=== PATIENT | female | born 1980 | race Caucasian/White ===

== ENCOUNTER 2018-02-07 12:59 | Emergency (ER) | payer MEDICAID ==
--- NOTE | 2018-02-07 13:14 | ER Report ---
History and Physical Time Seen By MD: 13:15 HPI/ROS CHIEF COMPLAINT: Cough, body aches HISTORY OF PRESENT ILLNESS: 37-year-old female patient presents to emergency room with complaint of cough and bodyaches. Patient states she started getting sick the day after Thanksgiving. She states her daughter started getting sick 2 days before that. She states that she has not had any fevers or chills. She states that she has not had much of an appetite. Patient states she is not taking any medication for this. She is a smoker as in the process of quitting. Patient denies any nausea, vomiting or diarrhea. REVIEW OF SYSTEMS: Respiratory: As noted above Cardiovascular: No chest pain, no palpitations. Gastrointestinal: No vomiting, no abdominal pain. Musculoskeletal: No back pain. Allergies: Coded Allergies: Penicillins (Verified Allergy, Unknown, 02/07/18) amoxicillin (Verified Allergy, Unknown, 02/07/18) ketorolac (Verified Allergy, Unknown, 02/07/18) tramadol (Verified Allergy, Unknown, 02/07/18) Home Meds Active Scripts Albuterol Sulfate (VENTOLIN HFA) 18 Gm Inh, 2 PUFF INH Q4-6H PRN for SHORTNESS OF BREATH, #1 INH Prov:MELLY QUACH [facility] 02/07/18 Hydrocodone Bit/Acetaminophen (HYDROCODON-ACETAMINOPHEN 5-325) 1 Each Tablet, 1 EACH PO Q4-6H PRN for PAIN, #8 TAB Prov:MELLY QUACH [facility] 02/07/18 Azithromycin 250 Mg Tab (AZITHROMYCIN 250 MG TAB) 250 Mg Tablet, 1 TAB PO QDAY, #6 TAB Take 2 tabs today and then 1 tab a day until gone. Prov:MELLY QUACH [facility] 02/07/18 Past Medical/Surgical History Patient has a past medical history of migraines, pneumonia, COPD, kidney stones, hypothyroidism, depression, PTSD, phobias. Patient has surgical history of multiple ear surgeries, club foot. Reviewed Nurses Notes: Yes Constitutional Vital Sign - Last 24 Hours 02/07/18 02/07/18 02/07/18 02/07/18 13:16 13:43 13:43 13:51 Temp 98.1 Pulse 113 112 120 Resp 20 18 18 B/P (MAP) 115/87 Pulse Ox 93 94 O2 Delivery Room Air Room Air Physical Exam General Appearance: The patient is alert, has no immediate need for airway protection and no current signs of toxicity. Respiratory: Chest is non tender, lungs are clear to auscultation. Cardiac: regular rate and rhythm Gastrointestinal: Abdomen is soft and non tender, no masses, bowel sounds normal. Musculoskeletal: Neck: Neck is supple and non tender. Extremities have full range of motion and are non tender. Skin: No rashes or lesions. DIFFERENTIAL DIAGNOSIS: After history and physical exam differential diagnosis was considered for shortness of breath including but not limited to pulmonary infectious process, COPD, asthma, pulmonary embolus and congestive heart failure. Medical Decision Making EKG/Imaging Imaging Exam type: CHEST PA AND LAT History: Cough, smoker Comparison: None. Findings: Both lungs are well-expanded and clear. There is no focal infiltrate, pleural effusion or pneumothorax. Heart size appears upper limits of normal. The osseous structures are unremarkable. IMPRESSION: 1. No acute cardiopulmonary disease. Report Dictated By: Sudarshan Singh MD at 02/07/2018 2:32 PM Report E-Signed By: Sudarshan Singh MD at 02/07/2018 2:33 PM ED Course/Re-evaluation ED Course Patient was admitted to exam room, history and physical were obtained. Differential diagnoses were considered. On examination lungs are coarse throughout, abdomen soft nontender. Heart rate is regular. A chest x-ray was done. Does appear that she has a developing pneumonia in the right lower lobe. I discussed findings with the patient. We will go ahead and treat her with azithromycin, albuterol inhaler, we did give her a breathing treatment here in the emergency room she states that did seem to help, as well as a limited amount of pain medication she's having pleurisy with her pneumonia. I discussed this with the patient. I would like her to follow-up with her primary care provider in the next week. Patient verbalized understanding and agreement with plan. Decision to Disposition Date: Feb 07, 2018 Decision to Disposition Time: 14:46 Depart Departure Latest Vital Signs Vital Signs Date Time Temp Pulse Resp B/P (MAP) Pulse Ox O2 Delivery O2 Flow Rate FiO2 02/07/18 13:51 120 18 02/07/18 13:43 94 Room Air 02/07/18 13:16 98.1 115/87 Impression: Primary Impression: Pneumonia Condition: Improved Disposition: HOME OR SELF-CARE New Scripts Albuterol Sulfate (VENTOLIN HFA) 18 Gm Inh 2 PUFF INH Q4-6H PRN for SHORTNESS OF BREATH, #1 INH Prov: MELLY QUACH [facility] 02/07/18 Hydrocodone Bit/Acetaminophen (HYDROCODON-ACETAMINOPHEN 5-325) 1 Each Tablet 1 EACH PO Q4-6H PRN for PAIN, #8 TAB Prov: MELLY QUACH [employer]CHNIC[employer] 02/07/18 Azithromycin 250 Mg Tab (AZITHROMYCIN 250 MG TAB) 250 Mg Tablet 1 TAB PO QDAY, #6 TAB Take 2 tabs today and then 1 tab a day until gone. Prov: MELLY QUACH [facility] 02/07/18 Patient Instructions: Community Acquired Pneumonia (ED) Additional Instructions: Increase fluid intake. Get plenty of rest. Follow up with your primary care provider in the next week. Return to the ER if condition worsens. Take your medication as prescribed. Limit activity by pain. Problem Qualifiers Primary Impression: Pneumonia Pneumonia type: due to unspecified organism Laterality: right Lung location: lower lobe of lung Qualified Codes: J18.1 - Lobar pneumonia, unspecified organism MELLY QUACH [facility] Feb 07, 2018 13:14
[2018-02-07] MEDS ORDERED: ALBUTEROL/IPRATROPIUM 3 ML NEB NEB ONE (13:25)
--- NOTE | 2018-02-07 14:36 | RADIOLOGY IMAGING REPORT ---
[place] [facility] [place] Irina [place] : 1980 MR: [id number] V: [id number] EXAM DATE: ORDERING PHYSICIAN: MELLY QUACH TECHNOLOGIST: Location: [facility] Patient: Irina Hopkins : 1980 Visit/Account:[id number] Date of Sevice: 02/07/2018 Exam type: CHEST PA AND LAT History: Cough, smoker Comparison: None. Findings: Both lungs are well-expanded and clear. There is no focal infiltrate, pleural effusion or pneumothora x. Heart size appears upper limits of normal. The osseous structures are unremarkable. IMPRESSION: 1. No acute cardiopulmonary disease. Report Dictated By: Sudarshan Singh MD at 02/07/2018 2:32 PM Report E-Signed By: Sudarshan Singh MD at 02/07/2018 2:33 PM WSN:[id number]
[2018-02-07] MEDS ORDERED: HYDR-385 PO (14:42)
[2018-02-07] MEDS ORDERED: ALB18R INH (14:42)
[2018-02-07] MEDS ORDERED: AZIT-18 PO (14:42)
[2018-02-07 14:58] VITALS: BP 120/85
== END 2018-02-07 15:00 | disposition home or self-care (01) ==
LOC: ER 13:21
DX: J18.1 Lobar pneumonia, unspecified organism (principal)
CPT/HCPCS: 71046; 94640; 99283; J7620

== ENCOUNTER 2018-04-26 07:48 | Emergency (ER) | payer SELFPAY ==
[~2018-04-26 07:48] MED LIST: ALB18R INH; AZIT-18 PO; HYDR-385 PO
--- NOTE | 2018-04-26 07:53 | ER Report ---
History and Physical Time Seen By MD: 07:53 HPI/ROS CHIEF COMPLAINT: Foot and ankle pain HISTORY OF PRESENT ILLNESS: Patient is a 37-year-old female who states that she slipped and had an inversion to her left ankle last evening. She states she was walking downstairs slipped and inverted her left ankle. She reports pain to the base of the 1st metatarsal along with pain to the lateral malleolus. She is able to weight-bear but with significant pain. Allergies: Coded Allergies: Penicillins (Verified Allergy, Unknown, 02/07/18) amoxicillin (Verified Allergy, Unknown, 02/07/18) ketorolac (Verified Allergy, Unknown, 02/07/18) tramadol (Verified Allergy, Unknown, 02/07/18) Home Meds Active Scripts Hydrocodone Bit/Acetaminophen (HYDROCODON-ACETAMINOPHEN 5-325) 1 Each Tablet, 1 EACH PO Q4-6H PRN for PAIN, #12 TAB 0 Refills TAKE ONE TABLET BY MOUTH EVERY 4-6 HOURS NEEDED FOR PAIN Prov:JADA VILLASENOR MD 04/26/18 Reported Medications Sumatriptan Succinate (SUMATRIPTAN SUCCINATE) 25 Mg Tablet, 25 MG PO ONCE 04/26/18 Gabapentin (GABAPENTIN) 300 Mg Capsule, 300 MG PO QDAY, CAPSULE 04/26/18 Lamotrigine (LAMOTRIGINE) 100 Mg Tablet, 100 MG PO TID 04/26/18 Potassium Chloride (POTASSIUM CHLORIDE) 20 Meq Tab.er.prt, 20 MEQ PO QDAY 04/26/18 Clonazepam (CLONAZEPAM) 1 Mg Tab.rapdis, 1 MG PO TID, #6 TAB 04/26/18 Furosemide (FUROSEMIDE) 20 Mg Tablet, 1 TAB PO QDAY, TAB 04/26/18 Oxycodone Hcl/Acetaminophen (PERCOCET 10-325 MG TABLET) 1 Each Tablet, 1 EACH PO Q6H, TAB 04/26/18 Meloxicam (MELOXICAM) 7.5 Mg Tablet, 7.5 MG PO QDAY 04/26/18 Clonidine HCl (Clonidine HCl ER) 0.1 Mg Tab.er.12h 04/26/18 Promethazine Hcl (PROMETHAZINE HCL) 25 Mg Tablet, 25 MG PO Q8H, TAB 04/26/18 Discontinued Scripts Albuterol Sulfate (VENTOLIN HFA) 18 Gm Inh, 2 PUFF INH Q4-6H PRN for SHORTNESS OF BREATH, #1 INH Prov:MELLY QUACH [facility] 02/07/18 Hydrocodone Bit/Acetaminophen (HYDROCODON-ACETAMINOPHEN 5-325) 1 Each Tablet, 1 EACH PO Q4-6H PRN for PAIN, #8 TAB Prov:MELLY QUACH [facility] 02/07/18 Azithromycin 250 Mg Tab (AZITHROMYCIN 250 MG TAB) 250 Mg Tablet, 1 TAB PO QDAY, #6 TAB Take 2 tabs today and then 1 tab a day until gone. Prov:MELLY QUACH [facility] 02/07/18 Past Medical/Surgical History Noncontributory towards this chief complaint Constitutional Vital Sign - Last 24 Hours 04/26/18 07:55 Temp 98.7 Pulse 100 Resp 24 B/P (MAP) 113/75 Pulse Ox 91 O2 Delivery Room Air Physical Exam General appearance: alert no distress Left ankle: There is no significant swelling. There is no obvious deformity to the ankle. There is moderate tenderness to the lateral malleolus. Ankle joint is stable and there is no tenderness over the achilles tendon. The foot is non-tender without swelling. There is bruising over the 1st distal metatarsal area without deformity Neurologic exam: The patient has normal sensation distal to the injury. Vascular exam: Normal pulses and capillary refill in the foot [ ] DIFFERENTIAL DIAGNOSIS: After history and physical exam differential diagnosis was considered for ankle injury including sprain, fracture, foot fracture, dislocation and soft tissue injury. Medical Decision Making EKG/Imaging Imaging FACILITY: [facility] [place] PATIENT NAME: Irina Hopkins : 1980 MR: [id number] V: [id number] EXAM DATE: ORDERING PHYSICIAN: JADA VILLASENOR TECHNOLOGIST: Location: [facility] Patient: Irina Hopkins : 1980 Visit/Account:[id number] Date of Sevice: 04/26/2018 EXAMINATION: Left ankle radiographs 3 views HISTORY: Fall, pain COMPARISON: None. FINDINGS: Frontal, oblique and lateral views obtained. Bones: Normal. Joint spaces: Normal. Alignment: Normal. Soft tissues: Tiny ossification inferior to the medial malleolus visible on the frontal and oblique views. Equivocal lateral soft tissue swelling in the foot region seen on the frontal view. IMPRESSION: 1. Tiny age indeterminate ossification just inferior to the medial malleolus is favored to represent a chronic finding and less likely an acute avulsion fracture. 2. Equivocal lateral foot region soft tissue swelling seen on the frontal view, correlate with exam. 3. Otherwise normal left ankle radiographs. Report Dictated By: Homer Serrano MD at 04/26/2018 8:39 AM Report E-Signed By: Homer Serrano MD at 04/26/2018 8:42 AM WSN:[email or web address] FACILITY: [facility] [place] PATIENT NAME: Irina Hopkins : 1980 MR: [id number] V: [id number] EXAM DATE: ORDERING PHYSICIAN: JADA VILLASENOR TECHNOLOGIST: Location: [facility] Patient: Irina Hopkins : 1980 Visit/Account:[id number] Date of Sevice: 04/26/2018 EXAMINATION: Left foot radiographs 3 views HISTORY: Fall, pain COMPARISON: None. FINDINGS: Frontal, oblique and lateral views obtained. Bones: Normal. Joint spaces: Normal. Alignment: Normal. Soft tissues: Dorsal soft tissue swelling seen on lateral view. IMPRESSION: No fracture or malalignment. Dorsal soft tissue swelling seen on lateral view. Report Dictated By: Homer Serrano MD at 04/26/2018 8:42 AM Report E-Signed By: Homer Serrano MD at 04/26/2018 8:43 AM WSN:[email or web address] ED Course/Re-evaluation ED Course Plan at this time will be x-ray of the foot ankle. We will give oral pain medication. Disposition pending imaging studies. Decision to Disposition Date: Apr 26, 2018 Decision to Disposition Time: 09:01 Depart Departure Latest Vital Signs Vital Signs Date Time Temp Pulse Resp B/P (MAP) Pulse Ox O2 Delivery O2 Flow Rate FiO2 04/26/18 07:55 98.7 100 24 113/75 91 Room Air Impression: Primary Impression: Ankle pain Condition: Improved Disposition: HOME OR SELF-CARE Referrals: [facility] 1 Week If symptoms persist New Scripts Hydrocodone Bit/Acetaminophen (HYDROCODON-ACETAMINOPHEN 5-325) 1 Each Tablet 1 EACH PO Q4-6H PRN for PAIN, #12 TAB 0 Refills TAKE ONE TABLET BY MOUTH EVERY 4-6 HOURS NEEDED FOR PAIN Prov: JADA VILLASENOR MD 04/26/18 Patient Instructions: Ankle Exercises (GEN) Problem Qualifiers Primary Impression: Ankle pain Chronicity: acute Laterality: left Qualified Codes: M25.572 - Pain in left ankle and joints of left foot JADA VILLASEONR MD Apr 26, 2018 07:53
[2018-04-26] MEDS ORDERED: APAP/HYDROCODONE 325/5 TAB PO ONE (08:10)
[2018-04-26] MEDS ORDERED: SUMA25TA27 PO (08:11)
[2018-04-26] MEDS ORDERED: GABA-549 PO (08:11)
[2018-04-26] MEDS ORDERED: CLON0.1T14 (08:11)
[2018-04-26] MEDS ORDERED: MELO-205 PO (08:11)
[2018-04-26] MEDS ORDERED: CLON-389 PO (08:11)
[2018-04-26] MEDS ORDERED: PROM-110 PO (08:11)
[2018-04-26] MEDS ORDERED: FURO-45 PO (08:11)
[2018-04-26] MEDS ORDERED: LAMO100T52 PO (08:11)
[2018-04-26] MEDS ORDERED: OXYC-870 PO (08:11)
[2018-04-26] MEDS ORDERED: POTA20TA94 PO (08:11)
--- NOTE | 2018-04-26 08:45 | RADIOLOGY IMAGING REPORT ---
FACILITY: [facility] [place] PATIENT NAME: Irina Hopkins : 1980 MR: [id number] V: [id number] EXAM DATE: ORDERING PHYSICIAN: JADA VILLASENOR TECHNOLOGIST: Location: [facility] Patient: Irina Hopkins : 1980 Visit/Account:[id number] Date of Sevice: 04/26/2018 EXAMINATION: Left ankle radiographs 3 views HISTORY: Fall, pain COMPARISON: None. FINDINGS: Frontal, oblique and lateral views obtained. Bones: Normal. Joint spaces: Normal. Alignment: Normal. Soft tissues: Tiny ossification inferior to the medial malleolus visible on the frontal and oblique views. Equivocal lateral soft tissue swelling in the foot region seen on the frontal view. IMPRESSION: 1. Tiny age indeterminate ossification just inferior to the medial malleolus is favored to represent a chronic finding and less likely an acute avulsion fracture. 2. Equivocal lateral foot region soft tissue swelling seen on the frontal view, correlate with exam. 3. Otherwise normal left ankle radiographs. Report Dictated By: Homer Serrano MD at 04/26/2018 8:39 AM Report E-Signed By: Homer Serrano MD at 04/26/2018 8:42 AM WSN:[email or web address]
--- NOTE | 2018-04-26 08:47 | RADIOLOGY IMAGING REPORT ---
FACILITY: [facility] - [place] PATIENT NAME: Irina Hopkins : 1980 MR: [id number] V: [id number] EXAM DATE: ORDERING PHYSICIAN: JADA VILLASENOR TECHNOLOGIST: Location: [facility] [place] Patient: Irina Hopkins : 1980 Visit/Account:[id number] Date of Sevice: 04/26/2018 EXAMINATION: Left foot radiographs 3 views HISTORY: Fall, pain COMPARISON: None. FINDINGS: Frontal, oblique and lateral views obtained. Bones: Normal. Joint spaces: Normal. Alignment: Normal. Soft tissues: Dorsal soft tissue swelling seen on lateral view. IMPRESSION: No fracture or malalignment. Dorsal soft tissue swelling seen on lateral view. Report Dictated By: Homer Serrano MD at 04/26/2018 8:42 AM Report E-Signed By: Homer Serrano MD at 04/26/2018 8:43 AM WSN:[email or web address]
[2018-04-26] MEDS ORDERED: LOR5/325 PO (08:51)
[2018-04-26 09:00] VITALS: BP 114/98
== END 2018-04-26 09:17 | disposition home or self-care (01) ==
LOC: ER 08:01
DX: M25.572 Pain in left ankle and joints of left foot (principal)
CPT/HCPCS: 73610; 73630; 99284; L1930

== ENCOUNTER → 2018-06-07 | Outpatient (CLI) | payer MEDICAID ==
[~2018-06-07] MED LIST changes: +CLON-389 PO; +CLON0.1T14; +FURO-45 PO; +GABA-549 PO; +LAMO100T52 PO; +LOR5/325 PO; +MELO-205 PO; +OXYC-870 PO; +POTA20TA94 PO; +PROM-110 PO; +SUMA25TA27 PO
== END ==
LOC: US 05-28 02:04
PROVIDERS: ATTEND Internal Medicine Cardiovascular Disease
DX: I34.0 Nonrheumatic mitral (valve) insufficiency (principal); I07.1 Rheumatic tricuspid insufficiency
CPT/HCPCS: 93306

== ENCOUNTER → 2018-07-15 | Outpatient (CLI) | payer MEDICAID ==
[~2018-07-15] MED LIST changes: +REGADENOSON 0.4 MG/5 ML SYR ONE
--- NOTE | 2018-07-15 13:29 | RADIOLOGY IMAGING REPORT ---
FACILITY: [facility] PATIENT NAME: Irina Hopkins : 1980 MR: [id number] V: [id number] EXAM DATE: ORDERING PHYSICIAN: LEATHA LEPE TECHNOLOGIST: Location: [facility] Patient: Irina Hopkins : 1980 Visit/Account:[id number] Date of Sevice: 07/15/2018 REGADENOSON (LEXISCAN) MYOCARDIAL PERFUSION IMAGING. EXAMINATION: Single isotope SPECT imaging with regadenoson infusion and gated SPECT imaging. DATE OF EXAMINATION: July 15, 2018. REQUESTING PHYSICIAN:SHERLEY INDICATION: Coronary artery disease/ischemic chest pain PROCEDURE: After informed consent the patient received an intravenous injection of Tc-99m sestamibi followed at an appropriate time interval by rest imaging. The patient then subsequently received an intravenous infusion of 0.4 mg of regadenoson per protocol without complication. Resting heart rate was 78 bpm with a peak heart rate of 114 bpm. Blood pressure at rest was 78/61 and following infusi on was 116/77 . Baseline EKG demonstrates sinus rhythm. There were no EKG changes of ischemia follo wing infusion. Non-specific symptoms were reported. The patient then received an intravenous inject ion of Tc-99m sestamibi followed by stress imaging. DOSE of Tc-99m sestamibi (mCi): REST: 11.6 STRESS: 29.7 RAW DATA: Examination of the summed raw data revealed a fair quality study. MYOCARDIAL PERFUSION: The tomographic images demonstrate minor soft tissue attenuation without compe lling evidence for any myocardial ischemia or infarct. GATED IMAGES: The gated images demonstrate normal LV systolic performance and wall motion with LVEF 74%. IMPRESSION: 1. Nondiagnostic ECG portion of Lexiscan stress test. 2. Normal myocardial perfusion study without compelling evidence for myocardial ischemia or infarct w ith minor attenuation artifact noted 3. Normal LV systolic performance and wall motion with LVEF 74% Report Dictated By: Kt Jerez at 07/15/2018 1:21 PM Report E-Signed By: Kt Jerez at 07/15/2018 1:24 PM WSN:[id number]
== END ==
LOC: RESP 00:17
PROVIDERS: ATTEND Internal Medicine Cardiovascular Disease
DX: I25.9 Chronic ischemic heart disease, unspecified (principal)
CPT/HCPCS: 78452; 93017; A9500; J2785